=== PATIENT | male | born 1945 | race Caucasian/White ===

== ENCOUNTER → 2023-07-21 15:08 | Outpatient (REF) | payer MEDICARE, OTHER, SELFPAY ==
[2023-07-21 16:59] LABS: ALT (SGPT) 21 U/L (0-50); AST (SGOT) 29 U/L (17-59); Albumin 3.6 g/dl (3.5-5.0); Alkaline Phosphatase 164 U/L (38-126); Blood Urea Nitrogen 37 mg/dl (9-20); Calcium 8.9 mg/dl (8.4-10.2); Carbon Dioxide 26 mmol/L (22-30); Chloride 104 mmol/L (98-107); Glucose 85 mg/dl (70-99); Potassium 3.7 mmol/L (3.5-5.1); Sodium 140 mmol/L (135-145); Total Bilirubin 0.6 mg/dl (0.2-1.3); eGFR > 60.00
[2023-07-21 18:03] LABS: Testosterone, Total < 4.9 ng/dl (72-623)
== END ==
LOC: REG 15:08
PROVIDERS: ATTENDING PHYSICIAN Internal Medicine Hematology & Oncology
DX: C61 Malignant neoplasm of prostate (principal); C79.51 Secondary malignant neoplasm of bone
CPT/HCPCS: 36415; 80053; 84153; 84403

== ENCOUNTER → 2023-08-26 08:15 | Outpatient (REF) | payer MEDICARE, OTHER, SELFPAY | LOC: RAD 08:15 | PROVIDERS: ATTENDING PHYSICIAN Family Medicine Sports Medicine; OTHER PHYSICIAN Internal Medicine Hematology & Oncology; REFERRING PHYSICIAN Radiology Radiation Oncology | DX: C61 Malignant neoplasm of prostate (principal); R07.82 Intercostal pain | CPT/HCPCS: 78306; A9503 ==

== ENCOUNTER → 2023-10-24 16:54 | Outpatient (REF) | payer MEDICARE, OTHER, SELFPAY | LOC: RAD 16:54 | PROVIDERS: ATTENDING PHYSICIAN Internal Medicine Hematology & Oncology; FAMILY PHYSICIAN Family Medicine Sports Medicine; REFERRING PHYSICIAN Radiology Radiation Oncology | DX: M79.661 Pain in right lower leg (principal); M79.605 Pain in left leg; C61 Malignant neoplasm of prostate; C79.51 Secondary malignant neoplasm of bone | CPT/HCPCS: 93970 ==

== ENCOUNTER → 2023-10-25 15:24 | Outpatient (REF) | payer MEDICARE, OTHER, SELFPAY ==
[2023-10-25 16:24] LABS: D-Dimer 0.56 ug/mlFEU (0.00-0.50)
== END ==
LOC: REG 15:24
PROVIDERS: ATTENDING PHYSICIAN Internal Medicine Hematology & Oncology; FAMILY PHYSICIAN Family Medicine Sports Medicine
DX: C61 Malignant neoplasm of prostate (principal); C79.51 Secondary malignant neoplasm of bone
CPT/HCPCS: 36415; 85379

== ENCOUNTER → 2023-11-28 15:44 | Outpatient (REF) | payer MEDICARE, OTHER, SELFPAY ==
[2023-11-28 17:16] LABS: ALT (SGPT) 19 U/L (0-50); AST (SGOT) 38 U/L (17-59); Albumin 3.8 g/dl (3.5-5.0); Alkaline Phosphatase 239 U/L (38-126); Blood Urea Nitrogen 39 mg/dl (9-20); Calcium 9.4 mg/dl (8.4-10.2); Carbon Dioxide 19 mmol/L (22-30); Chloride 109 mmol/L (98-107); Glucose 114 mg/dl (70-99); Sodium 138 mmol/L (135-145); Total Bilirubin 0.7 mg/dl (0.2-1.3); Total Protein 6.4 g/dl (6.3-8.2); eGFR 55.88
[2023-11-28 17:39] LABS: Testosterone, Total 9.7 ng/dl (72-623)
== END ==
LOC: REG 15:44
PROVIDERS: ATTENDING PHYSICIAN Internal Medicine Hematology & Oncology; FAMILY PHYSICIAN Family Medicine Sports Medicine
DX: C61 Malignant neoplasm of prostate (principal); C79.51 Secondary malignant neoplasm of bone
CPT/HCPCS: 36415; 80053; 84153; 84403

== ENCOUNTER → 2024-02-03 13:34 | Outpatient (REF) | payer MEDICARE, OTHER, SELFPAY ==
[2024-02-03 14:40] LABS: % Basophils 0.3 % (0-2); % Eosinophils 3.9 % (0-6); % Immature Granulocytes 0.4 % (0-0.5); % Lymphocytes 6.5 % (20.5-51.1); % Monocytes 6.8 % (1.7-9.3); % Neutrophils 82.1 % (42.2-75.2); Absolute Eosinophils 0.3 10^3/uL (0-0.7); Absolute Lymphocytes 0.5 10^3/uL (1.2-3.4); Absolute Monocytes 0.5 10^3/uL (0.1-0.6); Absolute Neutrophils 6.6 10^3/uL (1.4-6.5); Hemoglobin 12.8 g/dL (13.0-18.0); Mean Corp Hgb Conc. 32.8 g/dL (33.0-37.0); Mean Corpuscular Hgb 30.5 pg (27.0-31.0); Mean Corpuscular Volume 92.9 fL (80.0-94.0); Mean Platelet Volume 9.4 fL (7.4-10.4); Nucleated Red Blood Cells % 0 % (-); Platelet Count 344 10^3/uL (130-400); Red Cell Dist. Width 13.5 % (11.5-14.5)
[2024-02-03 15:08] LABS: ALT (SGPT) 16 U/L (0-50); AST (SGOT) 24 U/L (17-59); Albumin 3.6 g/dl (3.5-5.0); Alkaline Phosphatase 322 U/L (38-126); Blood Urea Nitrogen 29 mg/dl (9-20); Calcium 9.4 mg/dl (8.4-10.2); Carbon Dioxide 26 mmol/L (22-30); Chloride 105 mmol/L (98-107); Glucose 122 mg/dl (70-99); Potassium 4.4 mmol/L (3.5-5.1); Sodium 137 mmol/L (135-145); Total Bilirubin 0.5 mg/dl (0.2-1.3); Total Protein 6.2 g/dl (6.3-8.2); eGFR > 60.00
[2024-02-03 15:40] LABS: Testosterone, Total 5.1 ng/dl (72-623)
== END ==
LOC: REG 13:34
PROVIDERS: ATTENDING PHYSICIAN Internal Medicine Hematology & Oncology; FAMILY PHYSICIAN Family Medicine Sports Medicine; REFERRING PHYSICIAN Specialist
DX: C61 Malignant neoplasm of prostate (principal); C79.51 Secondary malignant neoplasm of bone
CPT/HCPCS: 36415; 80053; 84153; 84403; 85025

== ENCOUNTER → 2024-03-05 11:40 | Outpatient (REF) | payer MEDICARE, OTHER, SELFPAY ==
[2024-03-05 12:19] LABS: % Basophils 0.3 % (0-2); % Eosinophils 2.9 % (0-6); % Immature Granulocytes 1.2 % (0-0.5); % Lymphocytes 7.5 % (20.5-51.1); % Monocytes 7.2 % (1.7-9.3); % Neutrophils 80.9 % (42.2-75.2); Absolute Eosinophils 0.3 10^3/uL (0-0.7); Absolute Immature Granulocytes 0.1 10^3/uL (0-0.05); Absolute Lymphocytes 0.8 10^3/uL (1.2-3.4); Absolute Monocytes 0.8 10^3/uL (0.1-0.6); Absolute Neutrophils 8.5 10^3/uL (1.4-6.5); Hematocrit 41.8 % (39.0-52.0); Hemoglobin 13.5 g/dL (13.0-18.0); Mean Corp Hgb Conc. 32.3 g/dL (33.0-37.0); Mean Corpuscular Volume 92.9 fL (80.0-94.0); Mean Platelet Volume 9.2 fL (7.4-10.4); Nucleated Red Blood Cells % 0 % (-); Platelet Count 362 10^3/uL (130-400); Red Cell Dist. Width 13.8 % (11.5-14.5); White Blood Cell Count 10.5 10^3/uL (4.8-10.8)
[2024-03-05 13:45] LABS: ALT (SGPT) 22 U/L (0-50); AST (SGOT) 29 U/L (17-59); Alkaline Phosphatase 315 U/L (38-126); Blood Urea Nitrogen 27 mg/dl (9-20); Calcium 9.5 mg/dl (8.4-10.2); Carbon Dioxide 28 mmol/L (22-30); Chloride 101 mmol/L (98-107); Glucose 94 mg/dl (70-99); Potassium 3.9 mmol/L (3.5-5.1); Sodium 141 mmol/L (135-145); Total Bilirubin 0.4 mg/dl (0.2-1.3); Total Protein 6.6 g/dl (6.3-8.2); eGFR > 60.00
== END ==
LOC: REG 11:40
PROVIDERS: ATTENDING PHYSICIAN Internal Medicine Hematology & Oncology; FAMILY PHYSICIAN Family Medicine Sports Medicine; REFERRING PHYSICIAN Radiology Radiation Oncology
DX: C61 Malignant neoplasm of prostate (principal); C79.51 Secondary malignant neoplasm of bone
CPT/HCPCS: 36415; 80053; 84153; 84154; 84403; 85025

== ENCOUNTER 2024-03-12 14:54 | Emergency (ER) | payer MEDICARE, OTHER, SELFPAY ==
[2024-03-12 15:02] VITALS: BP 165/87
--- NOTE | 2024-03-12 15:28 | ED.MUSCINJ ---
HPI-Injury
General
Chief Complaint: Musculo-Skeletal Complaint
Source: patient
Exam Limitations: none
Time Seen by Provider: 03/12/24 15:27
Nursing documentation reviewed up to this point in time: agreed with
History of Present Illness-Injury
Initial Injury comments:
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 Neck pain was worse yesterday and had trouble sleeping last night due to the pain. Denies numbness, tingling,
weakness in his arms.
R rib pain is chronic w rib fx but worse past 2 weeks with worsening of his chronic cough.
Pt had neck pain early December and January and had 5 radiation treatments to his neck for C spine mets. Denies pain with swallowing.
Incidentally, he states, he had a brain MRI at [facility] recently and there was a 'spot' noted on c spine suspicious for metastasis. The neck pain was not there until 2 days ago.
States he has known right rib fracture seen on imaging 01/22 when in preparation for radiation therapy. Has had pain in the area since. Past 2 weeks has had increase in his 'chronic cough I've had for years,' causing increase in the rib pain.
Saw PCP two weeks ago for the worsening cough and given Prednisone taper and an inhaled Diskus (he does not know the name) which he used with no improvement.
He felt 'like hell' yesterday and called his Oncologist Dr. Grullon who thought he felt poorly due to stopping the prednisone and put him back on Prednisone 10 mg daily which he started yesterday and Carisoprodol Q 8 hr, has had 3 doses with no relief.
Last neg Covid test 2 weeks ago.
Denies fever/chills, CP. Denies n/v/d or abdominal pain.
He is receiving Lupron injection monthly for past 6 mos for prostate Ca w bone mets.
Past History
Past History
ED Past Medical History: Asthma, Cancer (stage 4 prostate CA undergoing Lupron tx Mar, bone mets), GERD and Other (syncopal episodes from Dehydration. Bronchiectasis)
ED Past Surgical History: None
Social History
Tobacco: Non-smoker
Alcohol: Daily (Beer 1)
Personal:
Living: with family
Review of Systems
Review of Systems
Allergies reviewed?: Yes
All Other Systems: ROS reviewed and negative except as documented in HPI and ROS
Constitutional: Denies fever or chills
EENT: Denies sore throat or mouth pain
Respiratory: Reports cough; Denies trouble breathing
Cardiac: Denies chest pain
ABD/GI: Reports constipated; Denies abdominal pain, nausea, vomiting or diarrhea
: Denies dysuria or difficulty voiding
Musculoskeletal: Reports neck pain and other (right rib pain); Denies edema
Skin: Reports no symptoms
Neurological: Reports no symptoms
Phy Exam
Physical Exam
Physical Exam:
GENERAL: No acute distress. A&Ox3.
CONSTITUTIONAL: Afebrile.
EYES: clear, conjunctivae normal
ENMT: moist mucus membranes, Pharynx nl
RESPIRATORY: Regular respirations, nonlabored, lungs clear.
CARDIOVASCULAR: Regular rate and rhythm, no murmurs, no rubs.
GI: Soft, nontender, normal BS
MUSCULOSKELETAL: Tender to palpate right paracervical muscles, moderate limited range of motion of the neck due to this pain. Moves with ease. Well perfused.
SKIN: Warm, dry, pink
PSYCH: Normal mood and affect. Well kept, interactive and appropriate
NEUROLOGIC: Awake, alert and oriented. No focal neurological deficits. Strength equal throughout.
Injury Course
Orders/Labs/Results
Orders:
Orders
03/12/24 15:51
Ribs, Right 3 View W/PA Chest [CR Ribs-right 3 Vw W/pa Chest*] Urgent
Comment:
Reason For Exam: pain, prev R rib fx., cough, CA mets to bone
03/12/24 15:52
CR Cervical Spine 2 or 3 Vw Urgent
Comment:
Reason For Exam: R neck pain, known CA 'spot'c spine mets
03/12/24 16:28
COVID-19 Antigen Urgent
Source: Nasal Swab
MDM/Problems Addressed
Differential Diagnosis Includes:
cervical strain,
reinjury of recent rib fracture, rib sprain
Covid, PNA, metastatic disease
MDM/Problems Addressed:
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 Neck pain was worse yesterday and had trouble sleeping last night due to the pain. Denies numbness, tingling,
weakness in his arms.
R rib pain is chronic w rib fx but worse past 2 weeks with worsening of his chronic cough.
Pt had neck pain early December and January and had 5 radiation treatments to his neck for C spine mets. Denies pain with swallowing.
Incidentally, he states, he had a brain MRI at [facility] recently and there was a 'spot' noted on c spine suspicious for metastasis. The neck pain was not there until 2 days ago.
States he has known right rib fracture seen on imaging 01/22 when in preparation for radiation therapy. Has had pain in the area since. Past 2 weeks has had increase in his 'chronic cough I've had for years,' causing increase in the rib pain.
Saw PCP two weeks ago for the worsening cough and given Prednisone taper and an inhaled Diskus (he does not know the name) which he used with no improvement.
He felt 'like hell' yesterday and called his Oncologist Dr. Grullon who thought he felt poorly due to stopping the prednisone and put him back on Prednisone 10 mg daily which he started yesterday and Carisoprodol Q 8 hr, has had 3 doses with no relief.
Last neg Covid test 2 weeks ago.
Denies fever/chills, CP. Denies n/v/d or abdominal pain.
He is receiving Lupron injection monthly for past 6 mos for prostate Ca w bone mets.
5:25 p.m.
Covid neg
R rib xray w AP chest: R 9th rib noted to have distal area of bony disintegration, no acute fracture or other abnormality noted.
C spine xray: No acute bony abnormality, straightening of lordotic curve consistent with his history and exam of cervical spasm.
6:40 p.m.
Official cxr read texted to me by Dr. Delarosa: Mild asymmetric broad-glass opacity in the right upper lobe suggesting RIGHT UPPER LOBE PNEUMONIA. An inflammatory pneumonitis or subsegmental atelectasis/scarring are alternative diagnostic
possibilities.
Mild inflammatory interstitial pneumonitis in the basilar segments of the lower lobes.
MULTIFOCAL OSSEOUS METASTATIC DISEASE the destructive osseous metastasis in the right posterior 9th rib.
Pt notified of possible pneumonia and rx for Doxycycline sent to his pharmacy. He was pleasant and very appreciative of the care.
*Critical Care Note
Total Time (30-74mins, 75-104mins- exclusive of procedures): Not Applicable
ED Attending Note
-
Portions of this chart may have been created with voice recognition software.� Occasional wrong word or��sound alike� substitutions may have occurred due to the inherent limitations of voice recognition software.
Discharge Plan
Departure
Patient Disposition: Home (Routine Discharge)
Date of Disposition: 03/12/24
Time of Disposition: 18:02
Patient with high blood pressure during this ER visit?: No
Condition: Fair
Discharge Problem:
Acute cervical myofascial strain, Rib pain on right side
Instructions: Cervical Muscle Strain, Using Heat for Pain
Prescriptions:
New
doxycycline hyclate 100 mg capsule
100 mg PO BID Qty: 20 0RF
No Action
albuterol sulfate 2.5 MG/3 ML solution for nebulization
2.5 mg inhalation R QID Qty: 30 0RF
rivaroxaban [Xarelto] 15 MG tablet
15 mg PO BID Qty: 42 0RF
Referrals:
Julián De La Rosa, [Non-Admitting Privileges] - As needed
Ashlee Ramsey, [Family Provider] -
Activity Restrictions/Additional Instructions:
As we discussed, nothing worrisome on your neck xray.
Treat it like muscle spasm/cervical strain with Ibuprofen 600 mg, you may take the Soma with it. Heating pad, gentle massage and range of motion.
See your doctor if not much improved in one week.
Interventions
Interventions:
*Risk Screen - Suicide Last Done: 03/12/24 15:02
*General Assessment Last Done: 03/12/24 15:02
*Neglect/Abuse Screening Last Done: 03/12/24 15:02
*Nursing Disposition Last Done: 03/12/24 18:17
ED- Cardiac Assessment Last Done: 03/12/24 15:26
ED-Musculoskeletal Assessment Last Done: 03/12/24 15:26
ED- Pulmonary Assessment Last Done: 03/12/24 15:26
Discharge Date and Time
Discharge Date/Time: 03/12/24 18:18
Print Language: KAZAKH
[2024-03-12 17:00] LABS: COVID-19 Antigen Negative (Negative)
[2024-03-12 18:10] VITALS: BP 158/75
== END 2024-03-12 18:18 | disposition home or self-care (01) ==
LOC: EMR 14:54
PROVIDERS: Registered Nurse; EMERGENCY PHYSICIAN Emergency Medicine; FAMILY PHYSICIAN Internal Medicine
DX: S16.1XXA Strain of muscle, fascia and tendon at neck level, initial encounter (principal); R07.81 Pleurodynia; X50.0XXA Overexertion from strenuous movement or load, initial encounter; J45.909 Unspecified asthma, uncomplicated; K21.9 Gastro-esophageal reflux disease without esophagitis; C61 Malignant neoplasm of prostate; C79.51 Secondary malignant neoplasm of bone
CPT/HCPCS: 99284; 71101; 72040; 87811

== ENCOUNTER → 2024-04-27 14:41 | Outpatient (REF) | payer MEDICARE, OTHER, SELFPAY ==
[2024-04-27 15:37] LABS: % Basophils 0.1 % (0-2); % Eosinophils 1.3 % (0-6); % Immature Granulocytes 0.5 % (0-0.5); % Lymphocytes 7.3 % (20.5-51.1); % Monocytes 9.3 % (1.7-9.3); % Neutrophils 81.5 % (42.2-75.2); Absolute Eosinophils 0.1 10^3/uL (0-0.7); Absolute Lymphocytes 0.5 10^3/uL (1.2-3.4); Absolute Monocytes 0.7 10^3/uL (0.1-0.6); Hematocrit 43.2 % (39.0-52.0); Hemoglobin 14.2 g/dL (13.0-18.0); Mean Corp Hgb Conc. 32.9 g/dL (33.0-37.0); Mean Corpuscular Hgb 31.2 pg (27.0-31.0); Mean Corpuscular Volume 94.9 fL (80.0-94.0); Nucleated Red Blood Cells % 0 % (-); Platelet Count 200 10^3/uL (130-400); Red Blood Cell Count 4.55 10^6/uL (4.70-6.10); Red Cell Dist. Width 14.6 % (11.5-14.5); White Blood Cell Count 7.4 10^3/uL (4.8-10.8)
[2024-04-27 16:08] LABS: ALT (SGPT) 27 U/L (0-50); AST (SGOT) 37 U/L (17-59); Albumin 3.9 g/dl (3.5-5.0); Alkaline Phosphatase 375 U/L (38-126); Blood Urea Nitrogen 33 mg/dl (9-20); Calcium 9.5 mg/dl (8.4-10.2); Chloride 102 mmol/L (98-107); Glucose 100 mg/dl (70-99); Potassium 4.1 mmol/L (3.5-5.1); Sodium 143 mmol/L (135-145); Total Bilirubin 0.5 mg/dl (0.2-1.3); Total Protein 6.5 g/dl (6.3-8.2); eGFR 55.88
[2024-04-27 16:34] LABS: Testosterone, Total 6.2 ng/dl (72-623)
[2024-04-27 16:48] LABS: Carbon Dioxide 26 mmol/L (22-30)
== END ==
LOC: REG 14:41
PROVIDERS: ATTENDING PHYSICIAN Internal Medicine Hematology & Oncology; FAMILY PHYSICIAN Family Medicine Sports Medicine; OTHER PHYSICIAN Radiology Radiation Oncology
DX: C61 Malignant neoplasm of prostate (principal); C79.51 Secondary malignant neoplasm of bone
CPT/HCPCS: 36415; 80053; 84153; 84403; 85025

== ENCOUNTER → 2024-06-22 10:27 | Outpatient (REF) | payer MEDICARE, OTHER, SELFPAY ==
[2024-06-22 11:34] LABS: % Basophils 0.3 % (0-2); % Eosinophils 1.2 % (0-6); % Immature Granulocytes 0.8 % (0-0.5); % Lymphocytes 5.1 % (20.5-51.1); % Monocytes 11.6 % (1.7-9.3); Absolute Eosinophils 0.1 10^3/uL (0-0.7); Absolute Immature Granulocytes 0.1 10^3/uL (0-0.05); Absolute Lymphocytes 0.3 10^3/uL (1.2-3.4); Absolute Monocytes 0.7 10^3/uL (0.1-0.6); Absolute Neutrophils 4.9 10^3/uL (1.4-6.5); Hemoglobin 13.7 g/dL (13.0-18.0); Mean Corp Hgb Conc. 32.6 g/dL (33.0-37.0); Mean Corpuscular Hgb 31.4 pg (27.0-31.0); Mean Corpuscular Volume 96.3 fL (80.0-94.0); Mean Platelet Volume 9.5 fL (7.4-10.4); Nucleated Red Blood Cells % 0 % (-); Platelet Count 239 10^3/uL (130-400); Red Blood Cell Count 4.36 10^6/uL (4.70-6.10); Red Cell Dist. Width 14.5 % (11.5-14.5); White Blood Cell Count 6.1 10^3/uL (4.8-10.8)
[2024-06-22 16:19] LABS: ALT (SGPT) 11 U/L (0-50); AST (SGOT) 24 U/L (17-59); Albumin 3.6 g/dl (3.5-5.0); Alkaline Phosphatase 522 U/L (38-126); Blood Urea Nitrogen 32 mg/dl (9-20); Calcium 9.2 mg/dl (8.4-10.2); Carbon Dioxide 28 mmol/L (22-30); Chloride 103 mmol/L (98-107); Glucose 86 mg/dl (70-99); Potassium 4.1 mmol/L (3.5-5.1); Sodium 138 mmol/L (135-145); Total Bilirubin 0.4 mg/dl (0.2-1.3); Total Protein 6.3 g/dl (6.3-8.2); eGFR > 60.00
[2024-06-22 16:42] LABS: Testosterone, Total < 4.9 ng/dl (72-623)
== END ==
LOC: REG 10:27
PROVIDERS: ATTENDING PHYSICIAN Internal Medicine Hematology & Oncology; FAMILY PHYSICIAN Family Medicine Sports Medicine; REFERRING PHYSICIAN Radiology Radiation Oncology
DX: C61 Malignant neoplasm of prostate (principal); C79.51 Secondary malignant neoplasm of bone
CPT/HCPCS: 36415; 80053; 84153; 84403; 85025

== ENCOUNTER → 2024-06-26 15:57 | Outpatient (REF) | payer MEDICARE, OTHER, SELFPAY | LOC: RAD 15:57 | PROVIDERS: ATTENDING PHYSICIAN Nurse Practitioner Primary Care; FAMILY PHYSICIAN Family Medicine Sports Medicine; REFERRING PHYSICIAN Radiology Radiation Oncology | DX: C61 Malignant neoplasm of prostate (principal); C79.51 Secondary malignant neoplasm of bone | CPT/HCPCS: 71275; Q9967 ==

== ENCOUNTER → 2024-08-01 16:04 | Outpatient (REF) | payer MEDICARE, OTHER, SELFPAY | LOC: RAD 16:04 | PROVIDERS: ATTENDING PHYSICIAN Internal Medicine Hematology & Oncology; FAMILY PHYSICIAN Family Medicine Sports Medicine; REFERRING PHYSICIAN Radiology Radiation Oncology | DX: C61 Malignant neoplasm of prostate (principal); C79.51 Secondary malignant neoplasm of bone | CPT/HCPCS: 70470; Q9967 ==

== ENCOUNTER → 2024-08-02 09:18 | Outpatient (REF) | payer MEDICARE, OTHER, SELFPAY ==
[2024-08-02 09:54] VITALS: BP 149/71; BP_SYST 74
[2024-08-02] MEDS: ANCEF 10 IV (10:22)
[2024-08-02 11:35] VITALS: BP 141/89; BP_SYST 81
== END ==
LOC: RADI 09:18
PROVIDERS: ATTENDING PHYSICIAN Internal Medicine Hematology & Oncology; FAMILY PHYSICIAN Family Medicine Sports Medicine
DX: C61 Malignant neoplasm of prostate (principal)
CPT/HCPCS: 36561; 76937; 77001; 99152; 99153; C1788

== ENCOUNTER → 2024-08-06 11:59 | Outpatient (REF) | payer MEDICARE, OTHER, SELFPAY ==
[2024-08-06 12:13] LABS: % Basophils 0.3 % (0-2); % Immature Granulocytes 1.1 % (0-0.5); % Lymphocytes 6.2 % (20.5-51.1); % Monocytes 8.9 % (1.7-9.3); % Neutrophils 80.5 % (42.2-75.2); Absolute Eosinophils 0.2 10^3/uL (0-0.7); Absolute Immature Granulocytes 0.1 10^3/uL (0-0.05); Absolute Lymphocytes 0.4 10^3/uL (1.2-3.4); Absolute Monocytes 0.6 10^3/uL (0.1-0.6); Absolute Neutrophils 5.1 10^3/uL (1.4-6.5); Hematocrit 40.3 % (39.0-52.0); Hemoglobin 13.3 g/dL (13.0-18.0); Mean Corpuscular Hgb 32.1 pg (27.0-31.0); Mean Corpuscular Volume 97.3 fL (80.0-94.0); Mean Platelet Volume 9.1 fL (7.4-10.4); Platelet Count 263 10^3/uL (130-400); Red Blood Cell Count 4.14 10^6/uL (4.70-6.10); Red Cell Dist. Width 13.9 % (11.5-14.5); White Blood Cell Count 6.3 10^3/uL (4.8-10.8)
[2024-08-06 12:53] LABS: ALT (SGPT) 13 U/L (0-50); AST (SGOT) 29 U/L (17-59); Albumin 3.7 g/dl (3.5-5.0); Alkaline Phosphatase 871 U/L (38-126); Blood Urea Nitrogen 31 mg/dl (9-20); Carbon Dioxide 27 mmol/L (22-30); Chloride 105 mmol/L (98-107); Glucose 96 mg/dl (70-99); Iron 85 ug/dl (49-181); Potassium 4.4 mmol/L (3.5-5.1); Sodium 140 mmol/L (135-145); Total Bilirubin 0.6 mg/dl (0.2-1.3); Total Protein 6.4 g/dl (6.3-8.2); eGFR 55.88
[2024-08-06 13:03] LABS: Percent Saturation 27 % (20-50); Total Iron Binding Capacity 313 ug/dl (261-462)
[2024-08-06 14:59] LABS: Nucleated Red Blood Cells % 0 % (-)
== END ==
LOC: OIDL 11:59
PROVIDERS: ATTENDING PHYSICIAN Internal Medicine Hematology & Oncology; FAMILY PHYSICIAN Family Medicine Sports Medicine
DX: C61 Malignant neoplasm of prostate (principal)
CPT/HCPCS: 36415; 80053; 82728; 83540; 83550; 84153; 85025; 85045

== ENCOUNTER → 2024-08-14 16:21 | Outpatient (REF) | payer MEDICARE, OTHER, SELFPAY ==
[2024-08-14 15:15] LABS: % Basophils 0.1 % (0-2); % Eosinophils 0.4 % (0-6); % Lymphocytes 1.9 % (20.5-51.1); % Monocytes 7.1 % (1.7-9.3); % Neutrophils 82.5 % (42.2-75.2); Absolute Eosinophils 0.1 10^3/uL (0-0.7); Absolute Immature Granulocytes 2.4 10^3/uL (0-0.05); Absolute Lymphocytes 0.6 10^3/uL (1.2-3.4); Absolute Monocytes 2.1 10^3/uL (0.1-0.6); Absolute Neutrophils 24.6 10^3/uL (1.4-6.5); Hematocrit 39.7 % (39.0-52.0); Hemoglobin 12.9 g/dL (13.0-18.0); Mean Corp Hgb Conc. 32.5 g/dL (33.0-37.0); Mean Corpuscular Volume 98.5 fL (80.0-94.0); Mean Platelet Volume 9.6 fL (7.4-10.4); Platelet Count 218 10^3/uL (130-400); Red Blood Cell Count 4.03 10^6/uL (4.70-6.10); Red Cell Dist. Width 14.3 % (11.5-14.5); White Blood Cell Count 29.8 10^3/uL (4.8-10.8)
== END ==
LOC: OIDL 16:21
PROVIDERS: ATTENDING PHYSICIAN Internal Medicine Hematology & Oncology
DX: C61 Malignant neoplasm of prostate (principal); C79.51 Secondary malignant neoplasm of bone
CPT/HCPCS: 85025

== ENCOUNTER → 2024-08-24 16:27 | Outpatient (REF) | payer MEDICARE, OTHER, SELFPAY ==
[2024-08-24 16:57] LABS: % Basophils 0.4 % (0-2); % Eosinophils 0.2 % (0-6); % Immature Granulocytes 1.5 % (0-0.5); % Lymphocytes 2.4 % (20.5-51.1); % Monocytes 3.5 % (1.7-9.3); Absolute Basophils 0.1 10^3/uL (0-0.2); Absolute Immature Granulocytes 0.3 10^3/uL (0-0.05); Absolute Lymphocytes 0.5 10^3/uL (1.2-3.4); Absolute Monocytes 0.7 10^3/uL (0.1-0.6); Absolute Neutrophils 18.1 10^3/uL (1.4-6.5); Hematocrit 38.8 % (39.0-52.0); Hemoglobin 12.5 g/dL (13.0-18.0); Mean Corp Hgb Conc. 32.2 g/dL (33.0-37.0); Mean Corpuscular Hgb 32.1 pg (27.0-31.0); Mean Corpuscular Volume 99.5 fL (80.0-94.0); Mean Platelet Volume 9.8 fL (7.4-10.4); Nucleated Red Blood Cells % 0 % (-); Platelet Count 231 10^3/uL (130-400); Red Cell Dist. Width 15.9 % (11.5-14.5); White Blood Cell Count 19.7 10^3/uL (4.8-10.8)
[2024-08-24 17:11] LABS: ALT (SGPT) 15 U/L (0-50); AST (SGOT) 21 U/L (17-59); Albumin 4.1 g/dl (3.5-5.0); Alkaline Phosphatase 693 U/L (38-126); Blood Urea Nitrogen 31 mg/dl (9-20); Calcium 9.4 mg/dl (8.4-10.2); Carbon Dioxide 26 mmol/L (22-30); Chloride 104 mmol/L (98-107); Glucose 109 mg/dl (70-99); Sodium 138 mmol/L (135-145); Total Bilirubin 0.7 mg/dl (0.2-1.3); Total Protein 6.4 g/dl (6.3-8.2); eGFR > 60.00
== END ==
LOC: REG 16:27
PROVIDERS: ATTENDING PHYSICIAN Internal Medicine Hematology & Oncology; FAMILY PHYSICIAN Family Medicine Sports Medicine
DX: C61 Malignant neoplasm of prostate (principal); C79.51 Secondary malignant neoplasm of bone
CPT/HCPCS: 36415; 80053; 85025

== ENCOUNTER → 2024-09-10 15:00 | Outpatient (REF) | payer MEDICARE, OTHER, SELFPAY ==
[2024-09-10 15:38] LABS: Hematocrit 40.1 % (39.0-52.0); Hemoglobin 12.9 g/dL (13.0-18.0); Mean Corp Hgb Conc. 32.2 g/dL (33.0-37.0); Mean Corpuscular Hgb 32.4 pg (27.0-31.0); Mean Corpuscular Volume 100.8 fL (80.0-94.0); Mean Platelet Volume 10.3 fL (7.4-10.4); Platelet Count 237 10^3/uL (130-400); Red Blood Cell Count 3.98 10^6/uL (4.70-6.10); Red Cell Dist. Width 15.8 % (11.5-14.5); White Blood Cell Count 40.3 10^3/uL (4.8-10.8)
[2024-09-10 15:45] LABS: ALT (SGPT) 14 U/L (0-50); AST (SGOT) 22 U/L (17-59); Albumin 4.1 g/dl (3.5-5.0); Alkaline Phosphatase 582 U/L (38-126); Blood Urea Nitrogen 31 mg/dl (9-20); Calcium 9.5 mg/dl (8.4-10.2); Carbon Dioxide 30 mmol/L (22-30); Chloride 106 mmol/L (98-107); Glucose 77 mg/dl (70-99); Potassium 3.4 mmol/L (3.5-5.1); Sodium 144 mmol/L (135-145); Total Bilirubin 0.5 mg/dl (0.2-1.3); Total Protein 6.5 g/dl (6.3-8.2); eGFR > 60.00
[2024-09-10 16:11] LABS: Absolute Neutrophils -Man Diff 36.2 10^3/uL (1.4-6.5); Band Neutrophils 0 % (0-3); Lymphocytes 3 % (20-51); Metamyelocytes 2 % (-); Monocytes 2 % (2-9); Myelocytes 2 % (-); Platelets Checked Yes; Segmented Neutrophils 90 % (42-75)
[2024-09-10 16:12] LABS: Anisocytosis 1+; Macrocytosis 1+; Normal RBC Morphology No
[2024-09-10 16:13] LABS: Ovalocytes Occasional
[2024-09-10 16:14] LABS: Polychromasia Slight; Total Cells Counted 100
== END ==
LOC: OIDL 15:00
PROVIDERS: ATTENDING PHYSICIAN Internal Medicine Hematology & Oncology; FAMILY PHYSICIAN Family Medicine Sports Medicine
DX: C61 Malignant neoplasm of prostate (principal); C79.51 Secondary malignant neoplasm of bone
CPT/HCPCS: 36415; 80053; 84153; 85025

== ENCOUNTER → 2024-09-14 08:12 | Outpatient (REF) | payer MEDICARE, OTHER, SELFPAY | LOC: RAD 08:12 | PROVIDERS: ATTENDING PHYSICIAN Internal Medicine Hematology & Oncology; FAMILY PHYSICIAN Family Medicine Sports Medicine; OTHER PHYSICIAN Radiology Radiation Oncology | DX: C61 Malignant neoplasm of prostate (principal); C79.51 Secondary malignant neoplasm of bone | CPT/HCPCS: 73552 ==

== ENCOUNTER → 2024-09-24 10:40 | Outpatient (REF) | payer MEDICARE, OTHER, SELFPAY ==
[2024-09-24 11:28] LABS: % Basophils 0.4 % (0-2); % Eosinophils 0.7 % (0-6); % Immature Granulocytes 0.6 % (0-0.5); % Lymphocytes 4.1 % (20.5-51.1); % Monocytes 5.5 % (1.7-9.3); % Neutrophils 88.7 % (42.2-75.2); Absolute Eosinophils 0.1 10^3/uL (0-0.7); Absolute Immature Granulocytes 0.1 10^3/uL (0-0.05); Absolute Lymphocytes 0.4 10^3/uL (1.2-3.4); Absolute Monocytes 0.5 10^3/uL (0.1-0.6); Hematocrit 37.3 % (39.0-52.0); Mean Corp Hgb Conc. 32.2 g/dL (33.0-37.0); Mean Corpuscular Hgb 32.9 pg (27.0-31.0); Mean Corpuscular Volume 102.2 fL (80.0-94.0); Mean Platelet Volume 9.1 fL (7.4-10.4); Platelet Count 221 10^3/uL (130-400); Red Blood Cell Count 3.65 10^6/uL (4.70-6.10); Red Cell Dist. Width 15.3 % (11.5-14.5)
[2024-09-24 13:00] LABS: ALT (SGPT) 15 U/L (0-50); AST (SGOT) 22 U/L (17-59); Albumin 3.4 g/dl (3.5-5.0); Alkaline Phosphatase 517 U/L (38-126); Blood Urea Nitrogen 41 mg/dl (9-20); Calcium 9.2 mg/dl (8.4-10.2); Carbon Dioxide 26 mmol/L (22-30); Chloride 111 mmol/L (98-107); Glucose 83 mg/dl (70-99); Potassium 4.3 mmol/L (3.5-5.1); Sodium 142 mmol/L (135-145); Total Bilirubin 0.4 mg/dl (0.2-1.3); Total Protein 5.8 g/dl (6.3-8.2); eGFR 55.53
== END ==
LOC: OIDL 10:40
PROVIDERS: ATTENDING PHYSICIAN Internal Medicine Hematology & Oncology; FAMILY PHYSICIAN Family Medicine Sports Medicine
DX: C61 Malignant neoplasm of prostate (principal); C79.51 Secondary malignant neoplasm of bone
CPT/HCPCS: 36415; 80053; 84153; 85025

== ENCOUNTER → 2024-10-02 13:20 | Outpatient (REF) | payer MEDICARE, OTHER, SELFPAY | LOC: HWRAD 13:20 | PROVIDERS: ATTENDING PHYSICIAN Radiology Radiation Oncology; FAMILY PHYSICIAN Family Medicine Sports Medicine | DX: C79.51 Secondary malignant neoplasm of bone (principal) | CPT/HCPCS: 72192 ==

== ENCOUNTER → 2024-10-03 09:49 | Outpatient (REF) | payer MEDICARE, OTHER, SELFPAY | LOC: RAD 09:49 | PROVIDERS: ATTENDING PHYSICIAN Internal Medicine Hematology & Oncology; FAMILY PHYSICIAN Family Medicine Sports Medicine | DX: C61 Malignant neoplasm of prostate (principal); C79.51 Secondary malignant neoplasm of bone | CPT/HCPCS: 71046 ==

== ENCOUNTER → 2024-10-17 15:02 | Outpatient (REF) | payer MEDICARE, OTHER, SELFPAY | LOC: RAD 15:02 | PROVIDERS: ATTENDING PHYSICIAN Radiology Radiation Oncology; FAMILY PHYSICIAN Family Medicine Sports Medicine; OTHER PHYSICIAN Internal Medicine Hematology & Oncology | DX: C79.51 Secondary malignant neoplasm of bone (principal) | CPT/HCPCS: 73590 ==

== ENCOUNTER → 2024-10-22 10:52 | Outpatient (REF) | payer MEDICARE, OTHER, SELFPAY ==
[2024-10-22 11:45] LABS: % Basophils 0.2 % (0-2); % Eosinophils 0.2 % (0-6); % Immature Granulocytes 0.3 % (0-0.5); % Lymphocytes 3.9 % (20.5-51.1); % Monocytes 5.4 % (1.7-9.3); Absolute Lymphocytes 0.3 10^3/uL (1.2-3.4); Absolute Monocytes 0.5 10^3/uL (0.1-0.6); Absolute Neutrophils 7.9 10^3/uL (1.4-6.5); Hematocrit 38.6 % (39.0-52.0); Hemoglobin 12.7 g/dL (13.0-18.0); Mean Corp Hgb Conc. 32.9 g/dL (33.0-37.0); Mean Corpuscular Hgb 33.2 pg (27.0-31.0); Mean Corpuscular Volume 100.8 fL (80.0-94.0); Platelet Count 247 10^3/uL (130-400); Red Blood Cell Count 3.83 10^6/uL (4.70-6.10); White Blood Cell Count 8.7 10^3/uL (4.8-10.8)
[2024-10-22 14:28] LABS: ALT (SGPT) 16 U/L (0-50); AST (SGOT) 20 U/L (17-59); Albumin 3.9 g/dl (3.5-5.0); Alkaline Phosphatase 484 U/L (38-126); Blood Urea Nitrogen 35 mg/dl (9-20); Calcium 8.9 mg/dl (8.4-10.2); Carbon Dioxide 21 mmol/L (22-30); Chloride 109 mmol/L (98-107); Glucose 110 mg/dl (70-99); Potassium 4.3 mmol/L (3.5-5.1); Sodium 141 mmol/L (135-145); Total Bilirubin 0.7 mg/dl (0.2-1.3); Total Protein 6.1 g/dl (6.3-8.2); eGFR > 60.00
== END ==
LOC: OIDL 10:52
PROVIDERS: ATTENDING PHYSICIAN Internal Medicine Hematology & Oncology; FAMILY PHYSICIAN Family Medicine Sports Medicine
DX: C61 Malignant neoplasm of prostate (principal); C79.51 Secondary malignant neoplasm of bone
CPT/HCPCS: 80053; 84153; 84154; 85025

== ENCOUNTER → 2024-10-25 13:37 | Outpatient (REF) | payer MEDICARE, OTHER, SELFPAY ==
[2024-10-25 15:18] LABS: % Basophils 0.1 % (0-2); % Immature Granulocytes 0.4 % (0-0.5); % Lymphocytes 1.8 % (20.5-51.1); % Monocytes 3.9 % (1.7-9.3); % Neutrophils 93.8 % (42.2-75.2); Absolute Lymphocytes 0.2 10^3/uL (1.2-3.4); Absolute Monocytes 0.4 10^3/uL (0.1-0.6); Absolute Neutrophils 8.6 10^3/uL (1.4-6.5); Hematocrit 36.2 % (39.0-52.0); Hemoglobin 12.1 g/dL (13.0-18.0); Mean Corp Hgb Conc. 33.4 g/dL (33.0-37.0); Mean Corpuscular Hgb 32.9 pg (27.0-31.0); Mean Corpuscular Volume 98.4 fL (80.0-94.0); Mean Platelet Volume 10.2 fL (7.4-10.4); Nucleated Red Blood Cells % 0 % (-); Platelet Count 226 10^3/uL (130-400); Red Blood Cell Count 3.68 10^6/uL (4.70-6.10); Red Cell Dist. Width 14.7 % (11.5-14.5); White Blood Cell Count 9.1 10^3/uL (4.8-10.8)
== END ==
LOC: REG 13:37
PROVIDERS: ATTENDING PHYSICIAN Nurse Practitioner Adult Health; FAMILY PHYSICIAN Family Medicine Sports Medicine
DX: C61 Malignant neoplasm of prostate (principal); C79.51 Secondary malignant neoplasm of bone
CPT/HCPCS: 36415; 84153; 85025

== ENCOUNTER → 2024-11-14 10:21 | Outpatient (REF) | payer MEDICARE, OTHER, SELFPAY ==
[2024-11-14 11:15] LABS: % Basophils 0.5 % (0-2); % Eosinophils 0.1 % (0-6); % Immature Granulocytes 0.7 % (0-0.5); % Lymphocytes 3.3 % (20.5-51.1); % Monocytes 5.5 % (1.7-9.3); % Neutrophils 89.9 % (42.2-75.2); Absolute Basophils 0.1 10^3/uL (0-0.2); Absolute Immature Granulocytes 0.1 10^3/uL (0-0.05); Absolute Lymphocytes 0.3 10^3/uL (1.2-3.4); Absolute Monocytes 0.5 10^3/uL (0.1-0.6); Absolute Neutrophils 8.2 10^3/uL (1.4-6.5); Hematocrit 34.3 % (39.0-52.0); Hemoglobin 11.7 g/dL (13.0-18.0); Mean Corp Hgb Conc. 34.1 g/dL (33.0-37.0); Mean Corpuscular Hgb 33.8 pg (27.0-31.0); Mean Corpuscular Volume 99.1 fL (80.0-94.0); Mean Platelet Volume 9.7 fL (7.4-10.4); Nucleated Red Blood Cells % 0 % (-); Platelet Count 295 10^3/uL (130-400); Red Blood Cell Count 3.46 10^6/uL (4.70-6.10); Red Cell Dist. Width 15.1 % (11.5-14.5); White Blood Cell Count 9.1 10^3/uL (4.8-10.8)
[2024-11-14 11:54] LABS: ALT (SGPT) 17 U/L (0-50); AST (SGOT) 22 U/L (17-59); Albumin 3.7 g/dl (3.5-5.0); Alkaline Phosphatase 451 U/L (38-126); Blood Urea Nitrogen 24 mg/dl (9-20); Calcium 9.5 mg/dl (8.4-10.2); Carbon Dioxide 27 mmol/L (22-30); Chloride 111 mmol/L (98-107); Glucose 108 mg/dl (70-99); Potassium 3.9 mmol/L (3.5-5.1); Sodium 143 mmol/L (135-145); Total Bilirubin 0.5 mg/dl (0.2-1.3); eGFR > 60.00
== END ==
LOC: REG 10:21
PROVIDERS: ATTENDING PHYSICIAN Internal Medicine Hematology & Oncology; FAMILY PHYSICIAN Family Medicine Sports Medicine
DX: C61 Malignant neoplasm of prostate (principal); C79.51 Secondary malignant neoplasm of bone
CPT/HCPCS: 36415; 80053; 85025

== ENCOUNTER → 2024-12-03 10:50 | Outpatient (REF) | payer MEDICARE, OTHER, SELFPAY ==
[2024-12-03 11:51] LABS: % Basophils 0.2 % (0-2); % Eosinophils 1.3 % (0-6); % Immature Granulocytes 0.9 % (0-0.5); % Lymphocytes 2.5 % (20.5-51.1); % Monocytes 5.8 % (1.7-9.3); % Neutrophils 89.3 % (42.2-75.2); Absolute Eosinophils 0.2 10^3/uL (0-0.7); Absolute Immature Granulocytes 0.1 10^3/uL (0-0.05); Absolute Lymphocytes 0.3 10^3/uL (1.2-3.4); Absolute Monocytes 0.7 10^3/uL (0.1-0.6); Absolute Neutrophils 10.2 10^3/uL (1.4-6.5); Hematocrit 35.2 % (39.0-52.0); Hemoglobin 11.5 g/dL (13.0-18.0); Mean Corp Hgb Conc. 32.7 g/dL (33.0-37.0); Mean Corpuscular Hgb 33.3 pg (27.0-31.0); Mean Platelet Volume 9.7 fL (7.4-10.4); Platelet Count 249 10^3/uL (130-400); Red Blood Cell Count 3.45 10^6/uL (4.70-6.10); White Blood Cell Count 11.5 10^3/uL (4.8-10.8)
[2024-12-03 13:01] LABS: ALT (SGPT) 15 U/L (0-50); AST (SGOT) 22 U/L (17-59); Albumin 3.5 g/dl (3.5-5.0); Alkaline Phosphatase 433 U/L (38-126); Blood Urea Nitrogen 19 mg/dl (9-20); Calcium 9.1 mg/dl (8.4-10.2); Carbon Dioxide 27 mmol/L (22-30); Chloride 109 mmol/L (98-107); Glucose 102 mg/dl (70-99); Sodium 142 mmol/L (135-145); Total Bilirubin 0.7 mg/dl (0.2-1.3); Total Protein 5.7 g/dl (6.3-8.2); eGFR > 60.00
== END ==
LOC: OIDL 10:50
PROVIDERS: ATTENDING PHYSICIAN Internal Medicine Hematology & Oncology; FAMILY PHYSICIAN Family Medicine Sports Medicine
DX: C79.51 Secondary malignant neoplasm of bone (principal); C61 Malignant neoplasm of prostate
CPT/HCPCS: 36415; 80053; 84153; 85025

== ENCOUNTER → 2024-12-11 08:02 | Outpatient (REF) | payer MEDICARE, OTHER, SELFPAY ==
[2024-12-11 08:39] LABS: % Basophils 0.1 % (0-2); % Eosinophils 2.5 % (0-6); % Immature Granulocytes 0.8 % (0-0.5); % Lymphocytes 5.6 % (20.5-51.1); % Monocytes 5.9 % (1.7-9.3); % Neutrophils 85.1 % (42.2-75.2); Absolute Eosinophils 0.2 10^3/uL (0-0.7); Absolute Immature Granulocytes 0.1 10^3/uL (0-0.05); Absolute Lymphocytes 0.5 10^3/uL (1.2-3.4); Absolute Monocytes 0.5 10^3/uL (0.1-0.6); Hematocrit 36.9 % (39.0-52.0); Mean Corp Hgb Conc. 32.5 g/dL (33.0-37.0); Mean Corpuscular Hgb 32.9 pg (27.0-31.0); Mean Corpuscular Volume 101.1 fL (80.0-94.0); Platelet Count 299 10^3/uL (130-400); Red Blood Cell Count 3.65 10^6/uL (4.70-6.10); Red Cell Dist. Width 14.9 % (11.5-14.5); White Blood Cell Count 8.3 10^3/uL (4.8-10.8)
[2024-12-11 09:43] LABS: ALT (SGPT) 20 U/L (0-50); AST (SGOT) 21 U/L (17-59); Albumin 3.5 g/dl (3.5-5.0); Alkaline Phosphatase 533 U/L (38-126); Blood Urea Nitrogen 27 mg/dl (9-20); Calcium 9.3 mg/dl (8.4-10.2); Carbon Dioxide 26 mmol/L (22-30); Chloride 110 mmol/L (98-107); Glucose 87 mg/dl (70-99); Potassium 3.8 mmol/L (3.5-5.1); Sodium 140 mmol/L (135-145); Total Bilirubin 0.6 mg/dl (0.2-1.3); Total Protein 5.7 g/dl (6.3-8.2); eGFR > 60.00
== END ==
LOC: OIDL 08:02
PROVIDERS: ATTENDING PHYSICIAN Internal Medicine Hematology & Oncology; FAMILY PHYSICIAN Family Medicine Sports Medicine
DX: C61 Malignant neoplasm of prostate (principal); C79.51 Secondary malignant neoplasm of bone
CPT/HCPCS: 36415; 80053; 84153; 85025

== ENCOUNTER → 2025-01-08 13:23 | Outpatient (REF) | payer MEDICARE, OTHER, SELFPAY | LOC: RAD 13:23 | PROVIDERS: ATTENDING PHYSICIAN Nurse Practitioner Family | DX: R07.81 Pleurodynia (principal); C61 Malignant neoplasm of prostate | CPT/HCPCS: 71046 ==

== ENCOUNTER 2025-01-13 07:28 | Emergency (ER) | payer MEDICARE, OTHER, SELFPAY ==
[2025-01-13 07:37] VITALS: BP 96/65
[2025-01-13 08:00] VITALS: BMI 24.9
--- NOTE | 2025-01-13 08:43 | ED.GENMED ---
History of Present Illness
General
Chief Complaint: Abdominal Pain
Source: patient
Exam Limitations: none
Time Seen by Provider: 01/13/25 07:55
Nursing documentation reviewed up to this point in time: agreed with
History of Present Illness
History of Present Illness:
79 yo male with h/o GERD, HLD Stage 4 prostate CA with mets to bone, followed by Dr. Grullon, finished chemo 1 mo ago, finished radiation tx 2 mos ago, presents with 'I think I'm constipated,' abdominal and back pain, no BM for 3 days.
He describes the abdominal pain as diffuse and also in mid to lower back. No results with Fleet enema this morning. The patient reports not consuming any food yesterday, and only light meals and soup two days before. Pain severity is rated as 10
out of 10, affecting both the abdomen and back.
The patient also reports chest pain, he's had since dx with pneumonia, and aggravated by his chronic cough. Previous workup by his physician, Dr. Grullon, indicated the chest pain was not cardiac in nature. Analgesics such as Ibuprofen 800 mg
taken the day before and Acetaminophen 1000 mg this morning provided little relief. The chest pain persists with coughing, and the patient claims he must 'hold his chest' during episodes. This is not new.
The patients prostate-specific antigen (PSA) level has recently increased to 325 after the cessation of chemotherapy about a month ago, with the last radiation treatment concluded about two months prior. The patient is regularly monitored by
Mitchel and Dr. Anderson, with another appointment scheduled tomorrow with Dr. Anderson.
Denies fever/chills/n/v.
Afebrile, states pain 10/10 in abd and back
CBC with no clinically significant abnormality
CMP: Normal
Lipase normal
CT abdomen pelvis with IV contrast radiology report read:IMPRESSION: Diffuse bony metastatic disease.
Mild to moderate elevation of the left hemidiaphragm. Peripheral linear densities within the lower lungs, and there is likely a component of mild interstitial fibrosis. There may also be a component of dependent atelectasis.
No evidence for bowel obstruction or free intraperitoneal air. The amount of stool within the colon appears within normal limits.
Patient given a copy of report. Patient was is aware of his metastatic disease and I informed him that his back pain may be from metastasis to the spine. He will discuss with his oncologist tomorrow for a prescheduled appointment
Rx for Zofran and Percocet sent to his pharmacy
Past History
Past History
ED Past Medical History: Asthma, Cancer (stage 4 prostate CA finished radiation and chemo therapy), GERD and Other (syncopal episodes from Dehydration. Bronchiectasis)
ED Past Surgical History: None
Social History
Tobacco: Non-smoker
Alcohol: Daily (Beer 1)
Personal:
Living: with family
Review of Systems
Review of Systems
Allergies reviewed?: Yes
All Other Systems: ROS reviewed and negative except as documented in HPI and ROS
Constitutional: Denies fever or chills
ABD/GI: Reports abdominal pain
: Denies difficulty voiding
Musculoskeletal: Reports back pain
Skin: Reports other (Access port right upper chest wall)
Phy Exam
Physical Exam
Physical Exam:
General: Alert, no acute distress.
Skin: Warm, dry.
Eye, Ears, Nose, Mouth, and Throat: Oral mucosa moist.
Cardiovascular: Normal peripheral perfusion, No edema.
Respiratory: Respirations are non-labored, chest pain on coughing.
Gastrointestinal: Abdomen generally tender, soft, normal BS
Back: Increased pain upon palpation
Musculoskeletal: Normal range of motion, normal strength.
Neurological: Alert and oriented to person, place, time, and situation, No focal neurological deficit observed.
Psychiatric: Cooperative, appropriate mood and affect.
Course
Orders/Labs/Results
Orders:
Orders
01/13/25 08:07
CT Abd/Pel (IV only)-DH only Urgent
Comment:
Reason For Exam: general abd pain, stage 4 prostate ca
HYDROmorphone [Dilaudid] 1 mg IV NOW STA
Ondansetron Injectable [Zofran] 4 mg IV NOW STA
01/13/25 08:08
0.9% Sodium Chloride 1000 ml [Nss] 1,000 ml IV BOLUS
01/13/25 08:16
Basic Metabolic Panel Urgent
Complete Blood Count/With Diff Urgent
Lipase Urgent
Abnormal Lab Results
01/13/25
08:16
RBC 3.88 L 10^6/uL
(4.70-6.10)
Hgb 12.4 L g/dL
(13.0-18.0)
Hct 38.0 L %
(39.0-52.0)
MCV 97.9 H fL
(80.0-94.0)
MCH 32.0 H pg
(27.0-31.0)
MCHC 32.6 L g/dL
(33.0-37.0)
Absolute Lymphs (auto) 0.4 L 10^3/uL
(1.2-3.4)
Neutrophils % 84.5 H %
(42.2-75.2)
Lymphocytes % 5.8 L %
(20.5-51.1)
Lipase 19 L U/L
(23-300)
01/13/25 08:16
01/13/25 08:16
Vital Signs
Initial and Last Documented VS:
Initial Vital Signs
Temp Pulse Resp BP Pulse Ox
97.6 F 78 16 96/65 99
01/13/25 07:37 01/13/25 07:37 01/13/25 07:37 01/13/25 07:37 01/13/25 07:37
Last Documented Vital Signs
Temp Pulse Resp BP Pulse Ox
97.6 F 78 16 160/82 96
01/13/25 07:37 01/13/25 07:37 01/13/25 07:37 01/13/25 10:10 01/13/25 10:11
MDM/Problems Addressed
Differential Diagnosis Includes:
The Differential Diagnosis includes, in no particular order and is not limited to:
1. Bowel obstruction
2. Opioid-induced constipation
3. Metastatic disease progression
4. Diverticulitis
5. Bowel perforation
6. Urinary tract infection
7. Renal colic
8. Osteoporotic compression fractures
9. Acute pancreatitis
10. Abdominal aortic aneurysm
MDM/Problems Addressed:
79 yo male with h/o GERD, HLD Stage 4 prostate CA with mets to bone, followed by Dr. Grullon, finished chemo 1 mo ago, finished radiation tx 2 mos ago, presents with 'I think I'm constipated,' abdominal and back pain, no BM for 3 days.
He describes the abdominal pain as diffuse and also in mid to lower back. No results with Fleet enema this morning. The patient reports not consuming any food yesterday, and only light meals and soup two days before. Pain severity is rated as 10
out of 10, affecting both the abdomen and back.
The patient also reports chest pain, he's had since dx with pneumonia, and aggravated by his chronic cough. Previous workup by his physician, Dr. Grullon, indicated the chest pain was not cardiac in nature. Analgesics such as Ibuprofen 800 mg
taken the day before and Acetaminophen 1000 mg this morning provided little relief. The chest pain persists with coughing, and the patient claims he must 'hold his chest' during episodes. This is not new.
The patients prostate-specific antigen (PSA) level has recently increased to 325 after the cessation of chemotherapy about a month ago, with the last radiation treatment concluded about two months prior. The patient is regularly monitored by
Mitchel and Dr. Anderson, with another appointment scheduled tomorrow with Dr. Anderson.
Denies fever/chills/n/v.
Afebrile, states pain 10/10 in abd and back
Plan:
1. Conduct basic blood work to assess current health status.
2. Perform a computed tomography (CT) scan of the abdomen with intravenous contrast for further evaluation.
3. Administer intravenous pain management for relief.
4. Provide intravenous fluids due to reduced oral intake.
5. Re-evaluate after obtaining test results and stabilize pain management.
CBC, CMP with no clinically significant abnormality.
Lipase normal
Pain is most likely from metastatic disease to bone
He has an appointment with his oncology radiation doctor tomorrow and he will discuss today's visit
Prescription for Vicodin sent to his pharmacy and he has been informed to discuss further medication for pain with his doctor tomorrow
*Pulse Oximetry
SaO2: 99
Oxygen Mode of Delivery: Room air
Patient hypoxic: not evaluated
*Critical Care Note
Total Time (30-74mins, 75-104mins- exclusive of procedures): Not Applicable
ED Attending Note
-
Portions of this chart may have been created with voice recognition software.� Occasional wrong word or��sound alike� substitutions may have occurred due to the inherent limitations of voice recognition software.
Discharge Plan
Departure
Patient Disposition: Home (Routine Discharge)
Date of Disposition: 01/13/25
Time of Disposition: 11:15
Patient with high blood pressure during this ER visit?: No
Condition: Fair
Discharge Problem:
Back pain, Abdominal pain, Metastatic cancer to bone
Instructions: Abdominal Pain
Prescriptions:
New
oxycodone-acetaminophen [Percocet] 5-325 mg tablet
1 tab PO Q6HPRN PRN (Reason: pain) Qty: 10 0RF
ondansetron 4 mg tablet,disintegrating
4 mg PO Q8H PRN (Reason: nausea and vomiting) 4 Days Qty: 14 0RF
No Action
ibuprofen [Motrin] 800 mg Tablet
800 mg PO Q8H
leuprolide [Lupron] 1 mg/0.2 mL Solution
1 mg SC [id number]
oxycodone-acetaminophen [Percocet] 5-325 mg Tablet
1 tab PO Q6H PRN (Reason: breakthrough pain)
pantoprazole 40 mg Tablet,Delayed Release (Dr/Ec)
40 mg PO DAILY
zolpidem 10 mg Tablet
12.5 mg PO HS PRN (Reason: insomnia )
Referrals:
Nuvia Stratton MD [Active, Radiology] - Keep scheduled appt
Julián De La Rosa DO [Family Provider, Family Practice]
Activity Restrictions/Additional Instructions:
As we discussed, I sent a prescription to your pharmacy for hydrocodone with acetaminophen which is Percocet. You can take it as needed for pain that is not relieved ibuprofen or regular Tylenol. I sent a prescription for 10 tablets, please discuss
with Dr. Stratton tomorrow if you need more pain medicine as they are the ones that we will have to prescribe it.
Take Colace stool softener daily to avoid constipation while on the narcotic pain medication.
You may continue your Dulcolax suppositories if needed.
Your CAT scan shows no sign of constipation.
Interventions
Interventions:
*Risk Screen - Suicide Last Done: 01/13/25 07:37
*Neglect/Abuse Screening Last Done: 01/13/25 07:37
AX-Lrfilz-Qwqmhqtohl Assessment Last Done: 01/13/25 08:00
Discharge Date and Time
Print Language: LEBANESE
[2025-01-13] MEDS: DILAUDID 1 MG IV (08:58)
[2025-01-13] MEDS: NSS 1000 IV (08:59)
[2025-01-13] MEDS: ZOFRAN 4 MG IV (08:59)
[2025-01-13 09:08] LABS: Hematocrit 38.0 % (39.0-52.0); Hemoglobin 12.4 g/dL (13.0-18.0); Mean Corp Hgb Conc. 32.6 g/dL (33.0-37.0); Mean Corpuscular Volume 97.9 fL (80.0-94.0); Nucleated Red Blood Cells % 0 % (-); Platelet Count 233 10^3/uL (130-400); Red Cell Dist. Width 13.2 % (11.5-14.5)
[2025-01-13 09:32] LABS: Blood Urea Nitrogen 16 mg/dl (9-20); Calcium 9.0 mg/dl (8.4-10.2); Carbon Dioxide 26 mmol/L (22-30); Chloride 106 mmol/L (98-107); Estimated Creatinine Clearance 73 ml/min; Glucose 96 mg/dl (70-99); Lipase 19 U/L (23-300); Sodium 137 mmol/L (135-145); eGFR > 60.00
[2025-01-13 10:10] VITALS: BP 160/82
[2025-01-13 11:00] VITALS: BP 121/71
== END 2025-01-13 12:30 | disposition home or self-care (01) ==
LOC: EMR 07:28
PROVIDERS: Registered Nurse; EMERGENCY PHYSICIAN Emergency Medicine; FAMILY PHYSICIAN Family Medicine Sports Medicine
DX: M54.9 Dorsalgia, unspecified (principal); R10.9 Unspecified abdominal pain; C79.51 Secondary malignant neoplasm of bone; C61 Malignant neoplasm of prostate; K21.9 Gastro-esophageal reflux disease without esophagitis; E78.00 Pure hypercholesterolemia, unspecified; J45.909 Unspecified asthma, uncomplicated; Z92.3 Personal history of irradiation
CPT/HCPCS: 99284; 96374; 96375; 96361; 74177; 80048; 83690; 85025; Q9967

== ENCOUNTER 2025-02-19 15:19 | Emergency (ER) | payer MEDICARE, OTHER, SELFPAY ==
[2025-02-19 15:22] VITALS: BP 150/84
--- NOTE | 2025-02-19 17:08 | ED.GENMED ---
History of Present Illness
General
Chief Complaint: Back Pain
Source: patient
Time Seen by Provider: 02/19/25 16:50
History of Present Illness
History of Present Illness:
79-year-old presents to the emergency room complaining of pain in his back. Patient began having significant pain in his low back at about 930am. He took 800 mg of ibuprofen which did not help. Patient has a history of prostate cancer with bony
mets. When he has pain ibuprofen typically helps. Pain radiates down his left leg to a certain extent to about his knee. Patient called his oncology office who recommended he take gabapentin which he did. This did not help. No fever or chills.
No focal weakness. Patient denies any change in bowel or bladder habits
Past History
Past History
ED Past Medical History: Asthma, Cancer (stage 4 prostate CA finished radiation and chemo therapy), GERD and Other (syncopal episodes from Dehydration. Bronchiectasis)
ED Past Surgical History: None
Social History
Tobacco: Non-smoker
Alcohol: Daily (Beer 1)
Personal:
Living: with family
Phy Exam
Physical Exam
Physical Exam:
General: Awake, Alert, Oriented X3. No acute distress.
Vitals: unremarkable
Head: Atraumatic
Eyes: Pupils equal, EOMI
Throat: Airway intact, no exudates
Neck: Trachea midline
Lungs: Clear and equal b/l
Heart: Regular rate, no murmurs
Abd: Soft, Nontender, No pulsatile mass
Back: Some pain to palpation lower lumbar region particularly to the left of midline
Neuro: No focal weakness
Skin: Warm, dry, no rash
Extremities: pulses equal b/l, no edema
Course
Orders/Labs/Results
Orders:
Orders
02/19/25 17:07
CT Lumbar Spine W/o Iv Contras Urgent
Comment:
Reason For Exam: sudden onset severe pain, prostate ca w mets
HYDROmorphone [Dilaudid] 0.5 mg IV NOW STA
02/19/25 20:03
Oxycodone [Roxicodone] 5 mg PO NOW STA
Vital Signs
Initial and Last Documented VS:
Initial Vital Signs
Temp Pulse Resp BP Pulse Ox
98.0 F 81 16 150/84 98
02/19/25 15:22 02/19/25 15:22 02/19/25 15:22 02/19/25 15:22 02/19/25 15:22
Last Documented Vital Signs
Temp Pulse Resp BP Pulse Ox
97.9 F 80 16 158/83 99
02/19/25 19:14 02/19/25 19:14 02/19/25 15:22 02/19/25 19:14 02/19/25 19:14
MDM/Problems Addressed
Differential Diagnosis Includes:
Pain from metastatic disease, pathologic compression fracture, muscle spasm
MDM/Problems Addressed:
Patient presents with low back pain. Pain could be related to metastatic disease to his lumbar spine or even iliac crest and sacrum. CT was performed which shows no spinal compression fractures there is extensive spinal metastatic disease however.
No evidence of cord compression. Will start the patient on oxycodone for pain control. Follow-up with oncology for further management.
Acute Exacerbation and/or Progression of Chronic Illness: Cancer (Prostate cancer stage IV)
*Radiology
Radiology exam reviewed: radiology read reviewed
*Pulse Oximetry
SaO2: 98
Oxygen Mode of Delivery: Room air
Patient hypoxic: no
*Critical Care Note
Total Time (30-74mins, 75-104mins- exclusive of procedures): Not Applicable
Data Reviewed
Review of Other/Old Records Reveals: Radiology Studies (PET scan from January)
Patient Management
Social determinants of health affecting care: Living situation and Strong social support
ED Attending Note
-
Portions of this chart may have been created with voice recognition software.� Occasional wrong word or��sound alike� substitutions may have occurred due to the inherent limitations of voice recognition software.
Discharge Plan
Departure
Patient Disposition: Home (Routine Discharge)
Date of Disposition: 02/19/25
Time of Disposition: 20:03
Patient with high blood pressure during this ER visit?: Yes
Condition: Good
Discharge Problem:
Back pain, Metastatic cancer to spine
Instructions: Low Back Pain (DC)
Prescriptions:
New
oxycodone 5 mg tablet
5 mg PO Q6H PRN (Reason: Pain) Qty: 20 0RF
No Action
ibuprofen [Motrin] 800 mg Tablet
800 mg PO Q8H
leuprolide [Lupron] 1 mg/0.2 mL Solution
1 mg SC [id number]
oxycodone-acetaminophen [Percocet] 5-325 mg Tablet
1 tab PO Q6H PRN (Reason: breakthrough pain)
pantoprazole 40 mg Tablet,Delayed Release (Dr/Ec)
40 mg PO DAILY
zolpidem 10 mg Tablet
12.5 mg PO HS PRN (Reason: insomnia )
oxycodone-acetaminophen [Percocet] 5-325 mg tablet
1 tab PO Q6HPRN PRN (Reason: pain) Qty: 10 0RF
ondansetron 4 mg tablet,disintegrating
4 mg PO Q8H PRN (Reason: nausea and vomiting) 4 Days Qty: 14 0RF
Referrals:
Shiva Grullon DO [Active, Hematology / Oncology]
Julián De La Rosa DO [Family Provider, Family Practice]
Activity Restrictions/Additional Instructions:
The CAT scan of your spine does not show any acute fractures. It does again show the presence of metastatic disease which was intact on your PET scan. I think the best course of action is to improve your pain management. I have sent a
prescription for oxycodone. You can take 1 tablet every 6 hours. Contact your oncologist for further pain management.
Interventions
Interventions:
*Risk Screen - Suicide Last Done: 02/19/25 15:22
*General Assessment Last Done: 02/19/25 17:17
*Neglect/Abuse Screening Last Done: 02/19/25 15:22
*ED- Fall Risk Assessment Last Done: 02/19/25 17:17
*ED COVID-19 Vaccine History Last Done: 02/19/25 17:17
*Nursing Disposition Last Done: 02/19/25 20:26
ED-Musculoskeletal Assessment Last Done: 02/19/25 17:17
Discharge Date and Time
Discharge Date/Time: 02/19/25 20:27
Print Language: POLISH
[2025-02-19] MEDS: DILAUDID 0.5 MG IV (17:13)
[2025-02-19 17:17] VITALS: BMI 24.4
[2025-02-19 19:14] VITALS: BP 158/83
[2025-02-19] MEDS: ROXICODONE 5 MG PO (20:12)
== END 2025-02-19 20:27 | disposition home or self-care (01) ==
LOC: EMR 15:19
PROVIDERS: EMERGENCY PHYSICIAN Emergency Medicine; FAMILY PHYSICIAN Family Medicine Sports Medicine
DX: M54.9 Dorsalgia, unspecified (principal); C79.51 Secondary malignant neoplasm of bone; J45.909 Unspecified asthma, uncomplicated; K21.9 Gastro-esophageal reflux disease without esophagitis; R55 Syncope and collapse; E86.0 Dehydration; C61 Malignant neoplasm of prostate; Z92.3 Personal history of irradiation
CPT/HCPCS: 99284; 72131